=== PATIENT | female | born 1995 | race Caucasian/White ===

== ENCOUNTER 2020-04-07 16:33 | Emergency (ER) | payer MEDICAID, SELFPAY ==
[2020-04-07 16:51] VITALS: BP 107/55; PULSE 77; RESP 16; TEMP 37; O2SAT 100; BMI 19.6
--- NOTE | 2020-04-07 19:33 | ED.PREGNANCY ---
HPI - General Chief complaint: Nausea/Vomiting/Diarrhea Stated complaint: Abdominal Pain (13 weeks ) Time Seen by Provider: 04/07/20 19:20 Source: patient Mode of arrival: ambulatory Limitations: no limitations History of Present Illness HPI Narrative: 25-year-old female with no significant past medical history presents with nausea, vomiting, lower abdominal pain and pressure at 13 weeks of . She does not have any prior medical history. This is her 4th , 2 vaginal deliveries with normal pregnancies, and 1 . She does not report any vaginal discharge, vaginal bleeding, fevers, chills, sexual assault or trauma, physical assault her trauma, or any other concerning symptoms at this time. MD Complaint: abdominal pain Onset (ago): day(s) (3) Pain Consistency: constant Location: pelvis Severity: moderate Severity scale (1-10): 7 Quality: Cramping, Aching and Constant Radiation: pelvis Relieving factors: none Exacerbating factors: movement Associated symptoms: nausea, vomiting and abdominal pain Vaginal discharge: none Vaginal bleeding: none Patient : Yes Number of Weeks : 13 OB History - Current : no complications OB History - Previous Pregnancies: no complications care: followed by OB Related Data : 4 Para: 2 Total number of abortions (spontaneous and elective): 1 Previous Rx's Medication Instructions Recorded lorazepam 0.5 mg PO BID PRN #10 tab 04/07/20 Allergies Allergy/AdvReac Type Severity Reaction Status Date / Time No Known Allergies Allergy Verified 04/07/20 19:37 Review of Systems Review of Systems: Constitutional: No Weight loss, No Fever, No Chills, No Night Sweats, No Fatigue, No Malaise ENT/Mouth: No Hearing loss, No Ear Pain, No Nasal Congestion, No Sinus Pain, No Hoarseness, No sore throat, No Rhinorrhea, No Swallowing Difficulty Eyes: No Eye Pain, No Swelling, No Redness, No Foreign Body, No Discharge, No Vision Changes Cardiovascular: No Chest Pain, No SOB, No Dyspnea on Exertion, No Orthopnea, No Edema, No Palpitations Respiratory: No Cough, No Sputum, No Wheezing, No Smoke Exposure, No Dyspnea Gastrointestinal: Positive Nausea, Positive Vomiting, no Diarrhea, positive abdominal Pain, No Hematochezia, No Melena Genitourinary: no irregular bleeding, No Dysuria, No Urinary Frequency, No Hematuria, No Urinary Incontinence, No Urgency, No Flank Pain, No Urinary Flow Changes, No Hesitancy Musculoskeletal: No joint pain, No Myalgias, No Joint Swelling Skin: No Skin Lesions, No rash Neuro: No Weakness, No Numbness, No Paresthesias, No Loss of Consciousness, No Dizziness, No Headache Psych: No Anxiety/Panic, No Depression, No SI/HI/AH/VH, No Social Issues Heme/Lymph: No Bruising, No Bleeding,No Lymphadenopathy Endocrine: No Polyuria, No Polydipsia, No Temperature Intolerance [facility], [facility] Past Medical History Medical History (Updated 04/08/20 @ 00:00 by Background Daemon) No known health problems : 4 Para: 2 Total number of abortions (spontaneous and elective): 1 Social History Social History Alcohol intake: never Smoking Status: Never smoker Use of substances other than those prescribed or required for medical reasons: No Advance Directives: No Advance Directives Information Provided: Yes Physical Exam Vital Signs: Vital Signs: Last Vital Signs Temp 98.3 F 04/07/20 21:46 Pulse 72 04/07/20 21:46 Resp 18 04/07/20 21:46 BP 111/70 04/07/20 21:46 Pulse Ox 100 04/07/20 21:46 Body Mass Index 19.6 Appearance: Alert. Oriented X3. No acute distress. Eyes: Pupils equal, round and reactive to light. ENT: Pharynx normal. Neck: Normal inspection. Neck supple. CVS: Normal heart rate and rhythm. Pulses normal. Respiratory: No respiratory distress. Breath sounds normal. Abdomen: Soft and nontender. No palpable fundus Skin: Skin warm and dry. Normal skin color. Normal skin turgor. Extremities: No lower extremity edema. Neuro: No motor deficit. No sensory deficit. Course Course Course Narrative: 25-year-old female presents with nausea, vomiting, and lower abdominal pressure, states that the pressure feels like the baby is sitting low in the abdomen almost like delivery, patient denies any other symptoms. Patient does not describe any vaginal discharge, vaginal bleeding, vaginal pain. Plan of care is for pelvic ultrasound, type and screen, and labs. Pelvic ultrasound indicates demise of a gestational sac approximately [address] weeks[address] out [address] Dr[address] Mcmullen. Discussion with Dr. Mcmullen at 8:48 p.m., detailed discussions of diagnostics, this is a missed , patient is okay to be discharged home as she does not have any bleeding or vaginal discharge. No indication of sepsis, no indication of intrauterine abscess or extra uterine . Patient is advised to follow up with [facility] as she is 13 weeks with demise and this facility does not have the ability to properly care for her condition at this time. Detailed description with patient regarding plan of care, patient verbalizes understanding of and agrees to plan of care. Patient is visibly anxious and upset at this time, we will discharge with prescription for Ativan. She does understand that this medication is highly addictive and has high risk for addiction and abuse. Consultations Consultation #1: Kemi Time: 20:48 Procedures Perimortem Number of Weeks : 13 MDM - OB/Uterine Contractions MDM Narrative Medical decision making narrative: Threatened , missed , ectopic Medical Records Attestation: I reviewed the patient's medical records. Lab Data Attestation: I reviewed the patient's lab results. Result diagrams: 04/07/20 19:56 04/07/20 19:56 Labs: Lab Results 04/07/20 04/07/20 04/07/20 Range/Units 19:56 19:56 19:56 WBC 8.5 (4.8-10.8) X10*3/uL RBC 3.99 L (4.20-5.50) X10*6/uL Hgb 13.1 (12.0-16.0) g/dl Hct 37.8 (37-47) % MCV 94.7 (80-98) fL MCH 32.8 (27.0-33.0) pg MCHC 34.7 (31.0-35.0) g/dl RDW 12.8 (11.0-16.0) % Plt Count 283 (160-400) X10*3/uL MPV 10.0 (9.4-12.3) fL Immature Gran % (Auto) 0.1 (0.0-0.4) % Neut % (Auto) 55.0 (45-73) % Lymph % (Auto) 38.4 (20-40) % [place] % (Auto) 2.7 (2-11) % Eos % (Auto) 3.3 (0-4) % Baso % (Auto) 0.5 (0-2) % Lymph # (Auto) 3.3 (1.2-4.9) X10*3/uL [place] # (Auto) 0.2 (0.1-1.2) X10*3/uL Eos # (Auto) 0.3 (0.0-0.4) X10*3/uL Baso # (Auto) 0.0 (0.0-0.2) X10*3/uL Abs Immat Gran (auto) 0.01 (0.00-0.03) X10*3/uL Absolute Neuts (auto) 4.7 (2.0-8.3) X10*3/uL Absolute Nucleated RBC 0.000 (0.0-0.012) X10*3/uL Nucleated RBC % (auto) 0.0 (0.0-0.2) /100WBC PT 12.7 (10.8-13.0) SEC INR 1.1 (0.9-1.1) APTT 30.1 (24.1-38.0) SEC Sodium 139 (135-145) mmol/L Potassium 3.9 (3.3-5.1) mmol/l Chloride 106 (96-108) mmol/L Carbon Dioxide 23 (22-29) mmol/L Anion Gap 14 (12-20) BUN 8 L (9-16) mg/dL Creatinine 0.61 (0.5-1.4) mg/dL Estim Creat Clear Calc 105.8 Estimated GFR > 60 Random Glucose 81 (60-115) mg/dL Calcium 9.0 (8.4-10.2) mg/dL Magnesium 2.1 (1.6-2.6) mg/dL Total Bilirubin 0.3 (0.0-1.0) mg/dL Direct Bilirubin < 0.2 (0.0-0.5) mg/dL AST 13 (5-31) U/L ALT 7 (0-31) U/L Alkaline Phosphatase 39 (39-117) U/L Total Protein 7.0 (6.5-8.0) g/dL Albumin 4.4 (3.5-5.0) g/dL Lipase 15 (8-78) U/L Beta HCG, Quant mIU/mL Urine Color Urine Appearance Urine pH (5.0-8.0) Ur Specific [place] (1.005-1.025) Urine Protein (NEG-TRACE) MG/DL Urine Glucose (UA) (NEG) MG/DL Urine Ketones (NEG) MG/DL Urine Blood (NEG) Urine Nitrite (NEG) Ur Leukocyte Esterase (NEG) Urine RBC (0) /HPF Urine WBC (0-4) /HPF Ur Squamous Epith Cells /LPF Urine Bacteria /LPF Urine Mucus /LPF 04/07/20 04/07/20 Range/Units 19:56 19:56 WBC (4.8-10.8) X10*3/uL RBC (4.20-5.50) X10*6/uL Hgb (12.0-16.0) g/dl Hct (37-47) % MCV (80-98) fL MCH (27.0-33.0) pg MCHC (31.0-35.0) g/dl RDW (11.0-16.0) % Plt Count (160-400) X10*3/uL MPV (9.4-12.3) fL Immature Gran % (Auto) (0.0-0.4) % Neut % (Auto) (45-73) % Lymph % (Auto) (20-40) % [place] % (Auto) (2-11) % Eos % (Auto) (0-4) % Baso % (Auto) (0-2) % Lymph # (Auto) (1.2-4.9) X10*3/uL [place] # (Auto) (0.1-1.2) X10*3/uL Eos # (Auto) (0.0-0.4) X10*3/uL Baso # (Auto) (0.0-0.2) X10*3/uL Abs Immat Gran (auto) (0.00-0.03) X10*3/uL Absolute Neuts (auto) (2.0-8.3) X10*3/uL Absolute Nucleated RBC (0.0-0.012) X10*3/uL Nucleated RBC % (auto) (0.0-0.2) /100WBC PT (10.8-13.0) SEC INR (0.9-1.1) APTT (24.1-38.0) SEC Sodium (135-145) mmol/L Potassium (3.3-5.1) mmol/l Chloride (96-108) mmol/L Carbon Dioxide (22-29) mmol/L Anion Gap (12-20) BUN (9-16) mg/dL Creatinine (0.5-1.4) mg/dL Estim Creat Clear Calc Estimated GFR Random Glucose (60-115) mg/dL Calcium (8.4-10.2) mg/dL Magnesium (1.6-2.6) mg/dL Total Bilirubin (0.0-1.0) mg/dL Direct Bilirubin (0.0-0.5) mg/dL AST (5-31) U/L ALT (0-31) U/L Alkaline Phosphatase (39-117) U/L Total Protein (6.5-8.0) g/dL Albumin (3.5-5.0) g/dL Lipase (8-78) U/L Beta HCG, Quant 9722 mIU/mL Urine Color YELLOW Urine Appearance CLEAR Urine pH 5.5 (5.0-8.0) Ur Specific [place] >= 1.030 H (1.005-1.025) Urine Protein NEG (NEG-TRACE) MG/DL Urine Glucose (UA) NEG (NEG) MG/DL Urine Ketones 5 (NEG) MG/DL Urine Blood TRACE (NEG) Urine Nitrite NEG (NEG) Ur Leukocyte Esterase NEG (NEG) Urine RBC 1-4 (0) /HPF Urine WBC 1-4 (0-4) /HPF Ur Squamous Epith Cells 1+ /LPF Urine Bacteria TRACE /LPF Urine Mucus 3+ /LPF Imaging Data Transvaginal OB ultrasound: Attestation: I personally reviewed and interpreted this imaging study as follows: Radiologist's impression: EXAMINATION: ULTRASOUND CLINICAL INFORMATION: Abdominal pain and cramping COMPARISON: None TECHNIQUE: Transabdominal imaging was performed. Doppler imaging was also utilized. FINDINGS: A gestational sac is seen in the uterus along with a pole. No motion was seen and no heartbeat could be detected. The crown-rump length was 4.11 cm which would correspond to a gestational age of 11 weeks 0 days with an MARYAM of 10[birth year]27[birth year]2020 The right ovary measures 2.4 x 1.9 x 1.6 cm and contains a 1.3 x 1.3 x 0.8 cm corpus luteum cyst. Left ovary measures 2.2 x 1.1 x 1.1 cm and appears normal. US/US OB <= 14 weeks fetus IMPRESSION: 11 week gestation but no motion and no heartbeat is seen. Findings suggest intrauterine demise. Discharge Plan Discharge Clinical Impression: Missed with demise before 20 completed weeks of gestation Patient Disposition: Home, Self-Care Instructions: Miscarriage (ED) Additional Instructions: You were evaluated for nausea, vomiting, abdominal pain and cramping during . Transvaginal ultrasound shows demise, there is no heartbeat found for your baby. You must follow-up with your OBGYN. If bleeding occurs please return to the emergency department at [facility], as this facility does not have the equipment or resources to properly treat you. Please follow-up with your OBGYN as soon as possible. I prescribed Ativan for anxiety. Please use this medication cautiously and has high risk for addiction and abuse. Do not drive or operate machinery while taking this medication. Thank you for choosing this emergency department for evaluation. Please follow-up with primary care physician as needed. Return to the emergency department for any new, concerning, or worsening symptoms. Prescriptions: New lorazepam 0.5 mg tablet 0.5 mg PO BID PRN (Reason: anxiety) Qty: 10 RF: 0 Interventions: ED Discharge Assessment Last Done: 04/07/20 21:57 Discharge Date/Time: 04/07/20 21:59
--- NOTE | 2020-04-07 19:37 | US_ITS ---
EXAMINATION: ULTRASOUND CLINICAL INFORMATION: Abdominal pain and cramping COMPARISON: None TECHNIQUE: Transabdominal imaging was performed. Doppler imaging was also utilized. FINDINGS: A gestational sac is seen in the uterus along with a pole. No motion was seen and no heartbeat could be detected. The crown-rump length was 4.11 cm which would correspond to a gestational age of 11 weeks 0 days with an MARYAM of 10[birth year]27/2020 The right ovary measures 2.4 x 1.9 x 1.6 cm and contains a 1.3 x 1.3 x 0.8 cm corpus luteum cyst. Left ovary measures 2.2 x 1.1 x 1.1 cm and appears normal. US/US OB <= 14 weeks fetus IMPRESSION: 11 week gestation but no motion and no heartbeat is seen. Findings suggest intrauterine demise.
[2020-04-07 19:47] VITALS: BP 105/57; PULSE 67; RESP 16; TEMP 36.9; O2SAT 100
[2020-04-07 20:00] LABS: MANUAL DIFF FLAG NO
[2020-04-07 20:05] LABS: Basophils Percent Auto 0.5 % (0-2); Eosinophils Absolute Auto 0.3 X10*3/uL (0.0-0.4); Eosinophils Percent Auto 3.3 % (0-4); Glucose Urine UA NEG (NEG); Hematocrit 37.8 % (37-47); Hemoglobin 13.1 g/dl (12.0-16.0); Imm Gran Abs Auto 0.01 X10*3/uL (0.00-0.03); Imm Gran Pct Auto 0.1 % (0.0-0.4); Leukocyte Esterase Urine NEG (NEG); Lymphocytes Absolute Auto 3.3 X10*3/uL (1.2-4.9); Lymphocytes Percent Auto 38.4 % (20-40); Mean Corpuscular HGB Conc 34.7 g/dl (31.0-35.0); Mean Corpuscular Hemoglobin 32.8 pg (27.0-33.0); Mean Corpuscular Volume 94.7 fL (80-98); Monocytes Absolute Auto 0.2 X10*3/uL (0.1-1.2); Monocytes Percent Auto 2.7 % (2-11); Neutrophils Absolute Auto 4.7 X10*3/uL (2.0-8.3); Nitrite Urine NEG (NEG); PH 5.5 (5.0-8.0); Platelet Count 283 X10*3/uL (160-400); Red Blood Count 3.99 X10*6/uL (4.20-5.50); Red Cell Distribution Width 12.8 % (11.0-16.0); Specific Gravity - Urine >= 1.030 (1.005-1.025); Urine Blood TRACE (NEG); Urine Ketones 5 MG/DL (NEG); Urine Protein NEG (NEG-TRACE); White Blood Count 8.5 X10*3/uL (4.8-10.8)
[2020-04-07 20:06] LABS: Appearance Urine CLEAR; Color Urine YELLOW
[2020-04-07 20:10] LABS: INTERNATIONAL NORM RATIO 1.1 (0.9-1.1); Prothrombin Time 12.7 SEC (10.8-13.0)
[2020-04-07 20:13] LABS: Partial Thromboplastin Time 30.1 SEC (24.1-38.0)
[2020-04-07 20:16] LABS: Bacteria Urine TRACE /LPF; Squamous Epithelial Cell Urine 1+ /LPF
[2020-04-07 20:17] LABS: Mucus Urine 3+ /LPF
[2020-04-07 20:35] LABS: Alanine Aminotransferase 7 U/L (0-31); Albumin Level 4.4 g/dL (3.5-5.0); Alkaline Phosphatase 39 U/L (39-117); Anion Gap 14 (12-20); Aspartate Amino Transferase 13 U/L (5-31); Bilirubin Direct < 0.2 mg/dL (0.0-0.5); Bilirubin Total 0.3 mg/dL (0.0-1.0); Blood Urea Nitrogen 8 mg/dL (9-16); Carbon Dioxide 23 mmol/L (22-29); Chloride 106 mmol/L (96-108); Creatinine Clr Calc Pharmacy 105.8; Estimated Glomerular Filt Rate > 60; Glucose Random 81 mg/dL (60-115); Lipase 15 U/L (8-78); Magnesium 2.1 mg/dL (1.6-2.6); Potassium 3.9 mmol/l (3.3-5.1); Sodium 139 mmol/L (135-145)
[2020-04-07 20:41] LABS: HCG Quantitative 9722 mIU/mL
[2020-04-07] MEDS: 0.9 % Sodium Chloride 1,000 ML 999 ML IVCONT (20:57)
[2020-04-07 21:46] VITALS: BP 111/70; PULSE 72; RESP 18; TEMP 36.8; O2SAT 100
== END 2020-04-07 21:59 | disposition home or self-care (01) ==
PROVIDERS: Nurse Practitioner Family; Emergency Provider Student in an Organized Health Care Education/Training Program
DX: O36.4XX0 Maternal care for intrauterine death, not applicable or unspecified (principal); Z3A.13 13 weeks gestation of pregnancy; F06.4 Anxiety disorder due to known physiological condition
CPT/HCPCS: 36415; 76801; 80048; 80076; 81001; 81003; 83690; 83735; 84702; 85025; 85610; 85730; 96360; 99284